=== PATIENT | female | born 1990 | race American Indian/Alaskan Native ===

== ENCOUNTER 2021-08-11 00:34 | Emergency (ER) | payer SELFPAY ==
--- NOTE | 2021-08-11 07:33 | Emergency Department Report ---
ED Female HPI - General Chief complaint: Vaginal Bleeding Stated complaint: ABDOMINAL PAIN Time Seen by Provider: 08/11/21 06:07 Source: patient Mode of arrival: Ambulatory Limitations: No Limitations - History of Present Illness Initial comments: This is a 30-year-old female nontoxic, well nourished in appearance, no acute signs of distress presents to the ED with c/o of vaginal bleeding x 1.5 weeks. Patient did start to have generalized weakness yesterday. Patient did state that she had heavy menstrual cycle which she stated is normal but not this long. Patient did state that her vaginal bleeding has significantly decreased which she is currently just spotting at this time which started yesterday. Patient denies any abdominal or pelvic pain. Patient denies any vaginal discharge or foul odor. Patient denies any nausea, vomiting, chest pain, shortness of breathe, fever, chills, headache, stiff neck, numbness, tingling. Patient denies any urinary symptoms. Patient denies any allergies or PMH. MD Complaint: vaginal bleeding -: week(s) Severity scale (0 -10): 0 Improves with: none Worsens with: none Are you Now?: No Associated Symptoms: vaginal bleeding. denies: vaginal discharge, abdominal pain, nausea/vomiting, fever/chills, headaches, loss of appetite, dysuria, hematuria, rash, seizure, shortness of breath, syncope, weakness - Related Data Home Medications Medication Instructions Recorded Confirmed Last Taken No Known Home Medications [No 08/11/21 08/11/21 Unknown Reported Home Medications] Allergies Allergy/AdvReac Type Severity Reaction Status Date / Time No Known Allergies Allergy Unverified 08/11/21 10:02 ED Review of Systems ROS: Stated complaint: ABDOMINAL PAIN Other details as noted in HPI Comment: All other systems reviewed and negative Constitutional: denies: chills, fever Eyes: denies: eye pain, eye discharge, vision change ENT: denies: ear pain, throat pain Respiratory: denies: cough, shortness of breath, wheezing Cardiovascular: denies: chest pain, palpitations Endocrine: no symptoms reported Gastrointestinal: denies: abdominal pain, nausea, vomiting, diarrhea, constipation, hematemesis, melena, hematochezia Genitourinary: abnormal menses. denies: urgency, dysuria, frequency, hematuria, discharge, dyspareunia Musculoskeletal: denies: back pain, joint swelling, arthralgia Skin: denies: rash, lesions Neurological: denies: headache, weakness, paresthesias Psychiatric: denies: anxiety, depression Hematological/Lymphatic: denies: easy bleeding, easy bruising ED Past Medical Hx - Past Medical History Previous Medical History?: No - Surgical History Past Surgical History?: No - Medications Home Medications: Home Medications Medication Instructions Recorded Confirmed Last Taken Type No Known Home Medications [No 08/11/21 08/11/21 Unknown History Reported Home Medications] ED Physical Exam - General Limitations: No Limitations General appearance: alert, in no apparent distress - Head Head exam: Present: atraumatic, normocephalic - Eye Eye exam: Present: normal appearance, EOMI Pupils: Present: normal accommodation - Neck Neck exam: Present: normal inspection, full ROM. Absent: tenderness, meningismus, lymphadenopathy - Respiratory Respiratory exam: Present: normal lung sounds bilaterally. Absent: respiratory distress, wheezes, rales, rhonchi, stridor, accessory muscle use, decreased b reath sounds, prolonged expiratory - Cardiovascular Cardiovascular Exam: Present: normal rhythm, tachycardia, normal heart sounds. Absent: irregular rhythm, systolic murmur, diastolic murmur, rubs, gallop - GI/Abdominal GI/Abdominal exam: Present: soft, normal bowel sounds. Absent: distended, tenderness, guarding, rebound, rigid, diminished bowel sounds - Extremities Exam Extremities exam: Present: full ROM - Back Exam Back exam: Present: full ROM - Neurological Exam Neurological exam: Present: alert, oriented X3, normal gait - Psychiatric Psychiatric exam: Present: normal affect, normal mood - Skin Skin exam: Present: warm, dry, intact, normal color. Absent: rash ED Course Vital Signs 08/11/21 08/11/21 08/11/21 00:37 09:56 10:00 Temperature 97.9 F 98.3 F Pulse Rate 99 H 88 Respiratory 18 16 Rate Blood Pressure 115/62 102/56 O2 Sat by Pulse 100 100 100 Oximetry 08/11/21 08/11/21 08/11/21 10:01 11:00 12:01 Temperature Pulse Rate 90 80 Respiratory 13 16 14 Rate Blood Pressure 101/55 101/55 121/64 O2 Sat by Pulse 99 100 100 Oximetry 08/11/21 08/11/21 13:01 14:01 Temperature Pulse Rate Respiratory 15 12 Rate Blood Pressure 145/62 118/67 O2 Sat by Pulse 100 100 Oximetry - Reevaluation(s) Reevaluation #1: 08/11/21 07:33 Patient is speaking in full sentences with no signs of distress noted. - Consultations Consultation #1: 08/11/21 08:24 Patient has been consulted with Dr. Celeste about patient history, physical exam, and labs and agrees to the ED plan of care. ED Medical Decision Making - Lab Data Result diagrams: 08/11/21 07:03 08/11/21 07:03 Lab Results 08/11/21 08/11/21 08/11/21 Range/Units 07:03 07:03 07:03 WBC 6.9 (4.5-11.0) K/mm3 RBC 4.07 (3.65-5.03) M/mm3 Hgb 6.0 L (10.1-14.3) gm/dl Hct 22.0 L (30.3-42.9) % MCV 54 L (79-97) fl MCH 15 L (28-32) pg MCHC 27 L (30-34) % RDW 22.1 H (13.2-15.2) % Plt Count 356 (140-440) K/mm3 Lymph % (Auto) 31.3 (13.4-35.0) % [place] % (Auto) 4.6 (0.0-7.3) % Eos % (Auto) 0.2 (0.0-4.3) % Baso % (Auto) 0.6 (0.0-1.8) % Lymph # (Auto) 2.2 (1.2-5.4) K/mm3 [place] # (Auto) 0.3 (0.0-0.8) K/mm3 Eos # (Auto) 0.0 (0.0-0.4) K/mm3 Baso # (Auto) 0.0 (0.0-0.1) K/mm3 Seg Neutrophils % 63.3 (40.0-70.0) % Seg Neutrophils # 4.4 (1.8-7.7) K/mm3 PT (12.2-14.9) Sec. INR (0.87-1.13) APTT (24.2-36.6) Sec. Sodium 137 (137-145) mmol/L Potassium 3.7 (3.6-5.0) mmol/L Chloride 100.7 (98-107) mmol/L Carbon Dioxide 22 (22-30) mmol/L Anion Gap 18 mmol/L BUN 7 (7-17) mg/dL Creatinine 0.8 (0.6-1.2) mg/dL Estimated GFR > 60 ml/min BUN/Creatinine Ratio 9 % Glucose 101 H (65-100) mg/dL Calcium 9.0 (8.4-10.2) mg/dL Total Bilirubin 0.20 (0.1-1.2) mg/dL AST 15 (5-40) units/L ALT 10 (7-56) units/L Alkaline Phosphatase 59 (35-129) units/L Total Protein 7.7 (6.3-8.2) g/dL Albumin 4.0 (3.9-5) g/dL Albumin/Globulin Ratio 1.1 % HCG, Qual Negative (Negative) Blood Type Antibody Screen Crossmatch 08/11/21 08/11/21 Range/Units 07:03 08:27 WBC (4.5-11.0) K/mm3 RBC (3.65-5.03) M/mm3 Hgb (10.1-14.3) gm/dl Hct (30.3-42.9) % MCV (79-97) fl MCH (28-32) pg MCHC (30-34) % RDW (13.2-15.2) % Plt Count (140-440) K/mm3 Lymph % (Auto) (13.4-35.0) % [place] % (Auto) (0.0-7.3) % Eos % (Auto) (0.0-4.3) % Baso % (Auto) (0.0-1.8) % Lymph # (Auto) (1.2-5.4) K/mm3 [place] # (Auto) (0.0-0.8) K/mm3 Eos # (Auto) (0.0-0.4) K/mm3 Baso # (Auto) (0.0-0.1) K/mm3 Seg Neutrophils % (40.0-70.0) % Seg Neutrophils # (1.8-7.7) K/mm3 PT 13.7 (12.2-14.9) Sec. INR 0.95 (0.87-1.13) APTT 34.3 (24.2-36.6) Sec. Sodium (137-145) mmol/L Potassium (3.6-5.0) mmol/L Chloride (98-107) mmol/L Carbon Dioxide (22-30) mmol/L Anion Gap mmol/L BUN (7-17) mg/dL Creatinine (0.6-1.2) mg/dL Estimated GFR ml/min BUN/Creatinine Ratio % Glucose (65-100) mg/dL Calcium (8.4-10.2) mg/dL Total Bilirubin (0.1-1.2) mg/dL AST (5-40) units/L ALT (7-56) units/L Alkaline Phosphatase (35-129) units/L Total Protein (6.3-8.2) g/dL Albumin (3.9-5) g/dL Albumin/Globulin Ratio % HCG, Qual (Negative) Blood Type O POSITIVE Antibody Screen Negative Crossmatch See Detail - Medical Decision Making 30-year-old female that presents with vaginal bleeding with iron deficiency anemia. Patient is stable and was examined by me and Dr. Celeste. After several attempts to start IV, IV nurse has been paged but patient refused and st ated she does not want any IV to be placed. Patient stated she does have ferrous sulfate which she stated started yesterday. Patient stated has a full medication bottle of ferrous sulfate at this time. I instructed patient of my concerns and further evaluation and the importance of receiving packed RBCs but patient still refused and signed against medical advised. RN was present during encounter regarding the importance of further evaluation for possible treatment, diagnostic testing and/or proper disposition. Patient was instructed to at time of signing AMA, the patient does not seem toxic or ill in appearance. No acute signs of distress noted. No further questions noted by the patient. The patient was evaluated in the emergency department for symptoms described in the history of present illness. He/she was evaluated in the context of the global COVID-19 pandemic, which necessitated consideration that the patient might be at risk for infection with the virus that causes COVID-19. Institutional protocols and algorithms that pertain to the evaluation of patients at risk for COVID-19 are in a state of rapid change based on information released by regulatory bodies including the CDC and federal and state organizations. These policies and algorithms were followed during the patient's care in the emergency department. Please note that these policies, procedures and recommendations changed on a rapid basis. Critical care attestation.: If time is entered above; I have spent that time in minutes in the direct care of this critically ill patient, excluding procedure time. ED Disposition Clinical Impression: Low hemoglobin and low hematocrit Iron deficiency anemia Qualifiers: Iron deficiency anemia type: unspecified iron deficiency Qualified Code(s): D50.9 - Iron deficiency anemia, unspecified Disposition: 07 LEFT AGAINST MEDICAL ADVICE Is pt being admited?: No Condition: Undetermined Additional Instructions: Follow-up with a [facility] doctor soon as possible or if symptoms worsen and continue return to emergency room as soon as possible. Your condition may be serious as instructed and educated today in the ER but you decided to leave AGAINST MEDICAL ADVICE. It is highly recommended to see a provider as soon as possible to rule out serious complications that was described to you during your ED stay. Referrals: [facility] [Provider Group] - [facility] [Provider Group] - EDUARD HAIDER MD [Staff Physician] - [facility] [Primary Care Provider] - [facility] Forms: AMA Form
[2021-08-11 07:56] LABS: Basophils % (Auto) 0.6 % (0.0-1.8); Eosinophils % (Auto) 0.2 % (0.0-4.3); Lymphocytes # (Auto) 2.2 K/mm3 (1.2-5.4); Lymphocytes % (Auto) 31.3 % (13.4-35.0); Mean Corpuscular HGB Conc 27 % (30-34); Monocytes # (Auto) 0.3 K/mm3 (0.0-0.8); Monocytes % (Auto) 4.6 % (0.0-7.3); Platelet Count 356 K/mm3 (140-440); Red Blood Count 4.07 M/mm3 (3.65-5.03)
[2021-08-11 07:57] LABS: Mean Corpuscular Volume 54 fl (79-97); Red Cell Distribution Width 22.1 % (13.2-15.2)
[2021-08-11 08:05] LABS: Alanine Aminotransferase 10 units/L (7-56); BUN/Creatinine Ratio 9; Blood Urea Nitrogen 7 mg/dL (7-17); Hemolysis Index 1
[2021-08-11 08:06] LABS: INR 0.95 (0.87-1.13)
[2021-08-11 08:07] LABS: Partial Thromboplastin Time 34.3 Sec. (24.2-36.6)
--- NOTE | 2021-08-11 08:18 | Event Note ---
Date of service: 08/11/21 Face to Face: For this encounter I have reviewed the PA/INSPECTOR ASSEMBLY documentation, treatment plan, medical decision making, and I had face to face time with this patient. The patient was evaluated in the emergency department for symptoms described in the history of present illness. He/she was evaluated in the context of the global COVID-19 pandemic, which necessitated consideration that the patient might be at risk for infection with the virus that causes COVID-19. Institutional protocols and algorithms that pertain to the evaluation of patients at risk for COVID-19 are in a state of rapid change based on information released by regulatory bodies including the CDC and federal and state organizations. These policies and algorithms were followed during the patient's care in the emergency department. Please note that these policies, procedures and recommendations changed on a rapid basis. 30-year-old female with history of body mass index 41.6, and heavy menstruation for years, typically follows with [facility], presenting to the ER with a complaint of painless vaginal bleeding for about a week and a half, which is essentially resolving. She feels somewhat weak and lightheaded, but has a GCS of 15, with a nonfocal neurologic examination, good pulses in the upper extremities, and a soft benign abdomen without rebound, guarding or peritoneal signs. Patient is agreeable to packed red blood cell transfusion, and also reports that she has been transfused in the past. 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 Plan of care is to transfuse patient 1 unit of packed red blood cells, restart on iron sulfate supplementation, nurse practitioner to discuss with OB on-call, we anticipate that discharge would be reasonable with outpatient follow-up. Patient may consider reinitiation of OCPs, after discussion of risk, benefits and alternatives, specifically risks of DVT/PE. Have also recommended that nurse practitioner discussed tobacco status with patient. Ultimately, this patient is hemodynamically stable, and whether or not she elects to start OCPs here in the emergency room, after transfusion, and initiation of iron sulfate supplementation, she is medically suitable to follow- up with an outpatient physician and fisher lampara net for this chronic issue The patient indicates that her bleeding has essentially slowed down and stopped at this point, and she denies rectal bleeding 08/11/2021; 13: 56 PM. Nursing team having difficulty establishing IV access. I went and personally evaluated the patient. She declined an external jugular IV placement. I counseled the patient that placement of an IV by myself would expedite throughput and care. Risks of prolonged /ER stay were discussed with the patient. She articulated understanding. She exhibits decision-making capacity. Nursing team endorses that they are able to cannulate patient's veins, but that the patient keeps jerking and pulling her arms. She remains hemodynamically stable. Ultimately, the patient refused definitive IV placement by myself, and nursing team. Patient is refusing care at this time she remains awake, alert, oriented, sober, and of sound mind. As per patient is refusing care, refusing to let us place definitive IV, she is going to be discharged AGAINST MEDICAL ADVICE. She may return at any time should she change her mind. Vital Signs 08/11/21 00:37 Temperature 97.9 F Pulse Rate 99 H Respiratory 18 Rate Blood Pressure 115/62 O2 Sat by Pulse 100 Oximetry Lab Results 08/11/21 08/11/21 08/11/21 Range/Units 07:03 07:03 07:03 WBC 6.9 (4.5-11.0) K/mm3 RBC 4.07 (3.65-5.03) M/mm3 Hgb 6.0 L (10.1-14.3) gm/dl Hct 22.0 L (30.3-42.9) % MCV 54 L (79-97) fl MCH 15 L (28-32) pg MCHC 27 L (30-34) % RDW 22.1 H (13.2-15.2) % Plt Count 356 (140-440) K/mm3 Lymph % (Auto) 31.3 (13.4-35.0) % [place] % (Auto) 4.6 (0.0-7.3) % Eos % (Auto) 0.2 (0.0-4.3) % Baso % (Auto) 0.6 (0.0-1.8) % Lymph # (Auto) 2.2 (1.2-5.4) K/mm3 [place] # (Auto) 0.3 (0.0-0.8) K/mm3 Eos # (Auto) 0.0 (0.0-0.4) K/mm3 Baso # (Auto) 0.0 (0.0-0.1) K/mm3 Seg Neutrophils % 63.3 (40.0-70.0) % Seg Neutrophils # 4.4 (1.8-7.7) K/mm3 PT (12.2-14.9) Sec. INR (0.87-1.13) APTT (24.2-36.6) Sec. Sodium 137 (137-145) mmol/L Potassium 3.7 (3.6-5.0) mmol/L Chloride 100.7 (98-107) mmol/L Carbon Dioxide 22 (22-30) mmol/L Anion Gap 18 mmol/L BUN 7 (7-17) mg/dL Creatinine 0.8 (0.6-1.2) mg/dL Estimated GFR > 60 ml/min BUN/Creatinine Ratio 9 % Glucose 101 H (65-100) mg/dL Calcium 9.0 (8.4-10.2) mg/dL Total Bilirubin 0.20 (0.1-1.2) mg/dL AST 15 (5-40) units/L ALT 10 (7-56) units/L Alkaline Phosphatase 59 (35-129) units/L Total Protein 7.7 (6.3-8.2) g/dL Albumin 4.0 (3.9-5) g/dL Albumin/Globulin Ratio 1.1 % HCG, Qual Negative (Negative) 08/11/21 Range/Units 07:03 WBC (4.5-11.0) K/mm3 RBC (3.65-5.03) M/mm3 Hgb (10.1-14.3) gm/dl Hct (30.3-42.9) % MCV (79-97) fl MCH (28-32) pg MCHC (30-34) % RDW (13.2-15.2) % Plt Count (140-440) K/mm3 Lymph % (Auto) (13.4-35.0) % [place] % (Auto) (0.0-7.3) % Eos % (Auto) (0.0-4.3) % Baso % (Auto) (0.0-1.8) % Lymph # (Auto) (1.2-5.4) K/mm3 [place] # (Auto) (0.0-0.8) K/mm3 Eos # (Auto) (0.0-0.4) K/mm3 Baso # (Auto) (0.0-0.1) K/mm3 Seg Neutrophils % (40.0-70.0) % Seg Neutrophils # (1.8-7.7) K/mm3 PT 13.7 (12.2-14.9) Sec. INR 0.95 (0.87-1.13) APTT 34.3 (24.2-36.6) Sec. Sodium (137-145) mmol/L Potassium (3.6-5.0) mmol/L Chloride (98-107) mmol/L Carbon Dioxide (22-30) mmol/L Anion Gap mmol/L BUN (7-17) mg/dL Creatinine (0.6-1.2) mg/dL Estimated GFR ml/min BUN/Creatinine Ratio % Glucose (65-100) mg/dL Calcium (8.4-10.2) mg/dL Total Bilirubin (0.1-1.2) mg/dL AST (5-40) units/L ALT (7-56) units/L Alkaline Phosphatase (35-129) units/L Total Protein (6.3-8.2) g/dL Albumin (3.9-5) g/dL Albumin/Globulin Ratio % HCG, Qual (Negative)
[2021-08-11] MEDS ORDERED: SODIUM CHLORIDE 0.9% 1000 ML 1,000 ML IV ONE (08:30)
[2021-08-11] MEDS ORDERED: SODIUM CHLORIDE 0.9% 500 ML 500 ML IV SCH (10:30)
[2021-08-11 14:21] VITALS: BP 118/67
== END 2021-08-11 14:12 | disposition left against medical advice (07) ==
LOC: ED 00:34
DX: D64.9 Anemia, unspecified (principal); D50.9 Iron deficiency anemia, unspecified
CPT/HCPCS: 36415; 80053; 84703; 85025; 85610; 85730; 86850; 86900; 86901; 86920; 99283